=== PATIENT | female | born 1970 | race Caucasian/White ===

== ENCOUNTER 2023-09-17 13:34 | Emergency (ER) | payer OTHER, SELFPAY ==
[2023-09-17 13:36] VITALS: BP 141/105; PULSE 103; RESP 18; TEMP 36.7; O2SAT 95; BMI 33.3
--- NOTE | 2023-09-17 14:48 | EX.ED.DYSGE1 ---
HPI <ANGELICA Cho - Last Filed: 09/17/23 15:32> History of Present Illness Chief Complaint: Cellulitis Narrative Narrative: 53-year-old female states she had a firm bump on her right buttock for months. Her doctor told her it was probably a cyst and is here if it bothered her. Over the last 3 days she was attending traveling in a hot tub frequently and the area became enlarged and painful. No fever or chills. She is diabetic. PFSH <ANGELICA Cho - Last Filed: 09/17/23 15:32> PFSH Home Medications cephalexin 500 mg capsule 500 mg PO Q6 5 days #20 CAPSULES 09/17/23 [Rx Last Taken Unknown] Allergy/AdvReac Type Severity Reaction Status Date / Time [id number]-[id number] Reductase Allergy Hives Verified 09/17/23 13:36 Inhibitor Social History Smoking Status: Never smoker ROS <ANGELICA Cho - Last Filed: 09/17/23 15:32> ROS ED ROS Narrative Constitutional: Negative for fever, chills, malaise. Skin: Positive for abscess. EXAM <ANGELICA Cho - Last Filed: 09/17/23 15:32> Physical Exam Narrative Exam Narrative: CONST: Patient sitting in no acute distress. EYES: Normal inspection. NECK: Normal inspection. RESP: No respiratory distress, CTAB. CVS: Regular rate and rhythm, no murmur, no gallop. SKIN: 1 cm tender fluctuant area on right medial buttock, no overlying erythema, no extension to rectum. EXTREMITIES: Normal appearance, no pedal edema. NEURO: Alert and answering questions appropriately. PSYCH: Normal affect. Const Vital Signs: 09/17/23 13:36 09/17/23 13:36 Temperature 98.1 F 98.1 F Temperature Source Temporal Temporal Pulse Rate 103 H 103 H Respiratory Rate 18 18 Blood Pressure 141/105 H 141/105 H Blood Pressure Mean 117 117 Pulse Ox 95 95 Oxygen Delivery Method Room Air Room Air <Tj Wetzel MD - Last Filed: 09/17/23 23:17> Physical Exam Const Vital Signs: 09/17/23 13:36 09/17/23 13:36 Temperature 98.1 F 98.1 F Temperature Source Temporal Temporal Pulse Rate 103 H 103 H Respiratory Rate 18 18 Blood Pressure 141/105 H 141/105 H Blood Pressure Mean 117 117 Pulse Ox 95 95 Oxygen Delivery Method Room Air Room Air [facility] <ANGELICA Cho - Last Filed: 09/17/23 15:32> [facility] Narrative Medical decision making narrative: Patient is a tender fluctuant area on the right buttock. I&D performed and it is consistent with a sebaceous cyst. She tolerated procedure well without complications. There is no overlying erythema however since she is diabetic and has other comorbidities I prescribed Keflex and provided a primary care referral. She was given return precautions and discharged in stable condition. <Tj Wetzel MD - Last Filed: 09/17/23 23:17> [facility] Treatment and Re-Evaluation :: Dr. Wetzel: I have personally performed a face to face assessment of the patient and have reviewed the ELIF Note. I performed a substantive portion of the visit including all aspects of the following. My corbett findings include: History is buttocks abscess/inclusion cyst infection, enlarging over the last few days. Exam is afebrile. Vital signs noted. Positive abscess right buttocks. Medical Decision Making: Incision and drainage, antibiotics. Follow-up primary care. Discharge. Other additions or changes: [None] Procedures <ANGELICA Cho - Last Filed: 09/17/23 15:32> Other Procedures Procedure(s): right buttock cyst I&D Area was anesthetized with 1% lidocaine and I used an 11 blade scalpel to make a 1 cm incision. It was explored with curved hemostats. Pulmonary segment of right bloody curd-like material was expressed consistent with a sebaceous cyst. Patient tolerated procedure well without complications. Discharge Plan Triage Chief Complaint: Cellulitis ED Midlevel Provider: Radha Tineo ED Provider: Tj Wetzel Dx/Rx/DC Orders Clinical Impression: Infected sebaceous cyst of skin Instructions: Epidermoid Cyst Infect I and D Prescriptions: New cephalexin 500 mg capsule 500 mg PO Q6 5 Days Qty: 20 0RF Primary Care Provider: Care Physician,No Primary Referrals: Claudia Jerez MD [Med Staff - Electronic Communications Technician] - Cristofer Pimentel MD [Med Staff - Active Staff] - Activity Restrictions/Additional Instructions: I listed two primary care doctors as local options. Your sebaceous cyst was drained. Alternate Tylenol and Motrin as needed for pain. Disposition Disposition: Home, Self Care Discharge Date/Time: 09/17/23 15:49
== END 2023-09-17 15:49 | disposition home or self-care (01) ==
LOC: ED 15:38
PROVIDERS: Emergency Provider Emergency Medicine; Visit Provider Emergency Medicine
DX: L72.3 Sebaceous cyst (principal); E11.9 Type 2 diabetes mellitus without complications
CPT/HCPCS: 99282

== ENCOUNTER → 2024-10-24 | Outpatient (CLI) | payer OTHER, SELFPAY ==
--- NOTE | 2024-10-24 13:59 | US_ITS ---
PROCEDURE: THYROID 10/24/2024 REASON FOR EXAM: THYROID NODULE TECHNIQUE: High-frequency thyroid ultrasound, including grayscale and color-flow images. REFERENCE LINKS: TI-RADS Chart: [email or web address] TI-RADS Calculator Tool with Reference Images: [email or web address]/ COMPARISON: None FINDINGS: Right thyroid lobe size: 4 cm by 1.8 cm x 2.1 cm Left thyroid lobe size: 4.2 cm x 1.9 cm 1.7 cm Isthmus: 0.3 cm Background parenchymal echotexture is heterogeneous echotexture. Nodules: . Lobe: Right, Location: Mid medial aspect of the right lobe., Size: 1 cm x 0.9 cm 0.6 cm. Cm, Stability: N/A Composition: Mixed cystic and solid (+1) Echogenicity: Hypoechoic (+2) Margin: Smooth (+0) Shape: Wider than tall (+0) Echogenic Foci: None (+0) TI-RADS: <2 = TR 1 * 2 = TR 2 * 3 = TR 3 * 4-6 = TR 4 * >6 = TR 5 . Lobe: Right, Location: Inferior midpole, Size: 5 mm x 5 mm x 6 mm. Cm, Stability: N/A Composition: Solid or almost completely solid (+2) Echogenicity: Hypoechoic (+2) Margin: Smooth (+0) Shape: Wider than tall (+0) Echogenic Foci: None (+0) TI-RADS: <2 = TR 1 * 2 = TR 2 * 3 = TR 3 * 4-6 = TR 4 * >6 = TR 5 7 mm x 7 mm x 7 mm hypoechoic complex nodule in the midportion of the left lobe. 1.4 cm x 1 cm x 1.1 cm hypoechoic complex nodule in the midpole of the left lobe of the thyroid. Biopsy of the 1.4 cm x 1 cm x 1.1 cm hypoechoic complex nodule in the left lobe suggested. US/Thyroid IMPRESSION: Bilateral thyroid nodules as described. Recommend biopsy of the 1.4 cm 1 cm 1.1 cm hypoechoic complex nodule in the mid pole of the left lobe of the thyroid. RECOMMENDATION: Based on most suspicious nodule. Nodule size = largest diameter Only evaluate nodule if =>5 mm. Growth > 20% in 2 dimensions = worsening. Follow up to 4 nodules. Recommend biopsy for no more than 2 nodules. Reading Location: [id number]
== END | disposition home or self-care (01) ==
LOC: US 13:57
PROVIDERS: PCP Nurse Practitioner Family; Referring Provider Nurse Practitioner Family; Visit Provider Nurse Practitioner Family
DX: E04.1 Nontoxic single thyroid nodule (principal)
CPT/HCPCS: 76536

== ENCOUNTER 2024-12-20 09:34 | Outpatient (CLI) | payer OTHER, SELFPAY ==
--- NOTE | 2024-12-20 08:00 | FLU_PTH ---
PATIENT: JACKLYN PINEDA LOC: [facility] U#:[id number] AGE/SX: 54/F ROOM: RE12/20/[address]: Dr. Nathan Rodarte MD : 1970 BED: DIS: 12/20/2024 SPEC #: [id number] RECD: 12/20/24 08:40 STATUS: CORDELL GLENIS #: [id number] MICHAEL: 12/20/24 08:[address]: Nathan Rodarte DEPT: CYTOLOGY RECD BY: Jose Agudelo ENTERED: 12/20/24 09:39 SP TYPE: Fluid OTHR DR: Tatiana North, EDE Tissues: A - Thyroid gland, NOS Procedures: Special Stain Group II Surgery Specimen Level IV Cytospin Fluid HEADER OPERATION: Fine needle aspiration of left thyroid nodule PRE-OP DIAGNOSIS: Left thyroid nodule TISSUE SUBMITTED: A- Left mid thyroid nodule DIAGNOSIS CYTOLOGY A. Left mid thyroid, nodule, FNA (cytospin, smear x6): - Atypical cells of undetermined significance (TBS III). COMMENT Per recommendations and a clinician-approved plan, genomic testing ([facility]) has been submitted. Results will be reported in an addendum and faxed to the clinician. CYTOLOGY STUDY Slides are reviewed. CYTOLOGY GROSS A. Received is 30 ml of light-pink cytolyt with particles and 6 smears labeled with the patient's name and and designated per the requisition as Left mid thyroid nodule. Submitted for cytology and cytospin. Mr 12/20/2024 CPT: 62396 ADDENDUM ADDENDUM ADDENDUM ADDENDUM ADDENDUM ADDENDUM ADDENDUM ADDENDUM 01/01/2025 10:28 ADDENDUM 01/01/2025 10:28 ADDENDUM 01/01/2025 10:28 ADDENDUM 01/01/2025 10:28 ADDENDUM 01/01/2025 10:28 AFIRMA RESULTS REPORT RESULTS INTERPRETATION: No results for [facility]ma GSC due to inadequate RNA yield. Inadequate RNA yields typically result from low nodule cellularity or insufficient FNA material. [facility] recommends resubmitting another FNA sample. Please see complete report in e-chart or EMR
--- NOTE | 2024-12-20 08:00 | FLU_PTH ---
PATIENT: JACKLYN PINEDA LOC: [facility] U#:[id number] AGE/SX: 54/F ROOM: RE12/20/[address]: Dr. Nathan Rodarte MD : 1970 BED: DIS: 12/20/2024 SPEC #: [id number] RECD: 12/20/24 08:40 STATUS: CORDELL GLENIS #: [id number] MICHAEL: 12/20/24 08:[address]: Nathan Rodarte DEPT: CYTOLOGY RECD BY: Jose Agudelo ENTERED: 12/20/24 09:39 SP TYPE: Fluid OTHR DR: Tatiana North, EDE Tissues: A - Thyroid gland, NOS Procedures: Special Stain Group II Surgery Specimen Level IV Cytospin Fluid HEADER OPERATION: Fine needle aspiration of left thyroid nodule PRE-OP DIAGNOSIS: Left thyroid nodule TISSUE SUBMITTED: A- Left mid thyroid nodule DIAGNOSIS CYTOLOGY A. Left mid thyroid, nodule, FNA (cytospin, smear x6): - Atypical cells of undetermined significance (TBS III). COMMENT Per recommendations and a clinician-approved plan, genomic testing ([facility]irma) has been submitted. Results will be reported in an addendum and faxed to the clinician. CYTOLOGY STUDY Slides are reviewed. CYTOLOGY GROSS A. Received is 30 ml of light-pink cytolyt with particles and 6 smears labeled with the patient's name and and designated per the requisition as Left mid thyroid nodule. Submitted for cytology and cytospin. Mr 12/20/2024 CPT: 50667 ADDENDUM ADDENDUM ADDENDUM ADDENDUM ADDENDUM ADDENDUM ADDENDUM ADDENDUM 01/01/2025 10:28 ADDENDUM 01/01/2025 10:28 ADDENDUM 01/01/2025 10:28 ADDENDUM 01/01/2025 10:28 ADDENDUM 01/01/2025 10:28 AFIRMA RESULTS REPORT RESULTS INTERPRETATION: No results for [facility]ma GSC due to inadequate RNA yield. Inadequate RNA yields typically result from low nodule cellularity or insufficient FNA material. [facility] recommends resubmitting another FNA sample. Please see complete report in e-chart or EMR
== END 2024-12-20 23:59 | disposition home or self-care (01) ==
PROVIDERS: PCP Nurse Practitioner Family; Referring Provider Surgery; Visit Provider Surgery
DX: E04.1 Nontoxic single thyroid nodule (principal)
CPT/HCPCS: 88108; 88305; 88313

== ENCOUNTER 2025-03-19 16:18 | Emergency (ER) | payer OTHER, SELFPAY ==
[2025-03-19 16:23] VITALS: BP 160/101; PULSE 78; RESP 18; TEMP 36.3; O2SAT 96; BMI 35.0
[2025-03-19 18:18] VITALS: BP 148/95; PULSE 70; RESP 17; O2SAT 97
[2025-03-19 18:26] LABS: Anion Gap 13 (5-15); BUN 12 mg/dL (4-19); BUN/Creat Ratio 18.2 RATIO (10-20); CRP 24.20 mg/L (0.0-3.0); Calcium,Total 9.6 mg/dL (7.6-11.0); Carbon Dioxide 21.9 mmol/L (21.0-32.0); Chloride 105 mmol/L (98-108); Estimated Creatinine Clearance 122.35 ml/min (50-250); Glucose 180 mg/dL (70-99); Potassium 4.2 mmol/L (3.3-5.1); Uric Acid 5.7 mg/dL (2.6-6.0)
[2025-03-19 19:04] LABS: Hematocrit 44.8 % (37-47); Hemoglobin 15.4 g/dL (12.0-15.0); Immature Granulocytes Count 0.020 X10^3/uL (0.0-0.0); Mean Corp Hgb Conc 34.4 g/dL (32-36); Mean Corpuscular Volume 83.7 fL (81-99); Mean Platelet Vol. 10.5 fl (6.2-12.0); NRBC Flagged by Analyzer 0 % (0-5); Platelet Count 267 K/mm3 (150-450); RBC Distribution Width CV 12.8 % (11.6-14.6); RBC Distribution Width SD 38.9 fl (35.1-43.9); Red Blood Count 5.35 M/mm3 (4.2-5.4); White Blood Count 8.5 K/mm3 (4.4-11.0)
[2025-03-19 20:00] VITALS: BP 153/95; PULSE 71; RESP 16; O2SAT 97
[2025-03-19 20:10] VITALS: BP 153/95; PULSE 71; RESP 16; TEMP 36.3; O2SAT 97
== END 2025-03-19 20:34 | disposition home or self-care (01) ==
PROVIDERS: Emergency Provider Emergency Medicine; PCP Nurse Practitioner Family; Visit Provider Emergency Medicine
DX: M25.571 Pain in right ankle and joints of right foot (principal); I82.461 Acute embolism and thrombosis of right calf muscular vein; E11.9 Type 2 diabetes mellitus without complications; E78.00 Pure hypercholesterolemia, unspecified; I10 Essential (primary) hypertension; M10.9 Gout, unspecified; Z79.899 Other long term (current) drug therapy; Z79.84 Long term (current) use of oral hypoglycemic drugs; Z79.85 Long-term (current) use of injectable non-insulin antidiabetic drugs; Z90.49 Acquired absence of other specified parts of digestive tract
CPT/HCPCS: 80048; 84550; 85025; 85652; 86140; 93971; 99283; A4216